=== PATIENT | male | born 1940 | race African-American/Black ===

== ENCOUNTER 2020-05-20 11:19 | Emergency (ER) | payer BC, OTHER ==
[~2020-05-20] VITALS: Ht 167.6 cm; Wt 69.5 kg
[2020-05-20] MEDS ORDERED: ACETAMINOPHEN 650MG/20.3ML UDC PO ONE (11:45)
[2020-05-20 12:58] LABS: CHLORIDE 107 mEq/L (98-107)
[2020-05-20 13:01] LABS: BASOPHILS % 0.6 % (0.0-2.0); EOSINOPHILS % 12.5 % (0.0-5.0); HEMATOCRIT. 35.5 % (42.0-52.0); LYMPHOCYTES % 34.5 % (20.0-50.0); MEAN CORPUSCULAR HEMOGLOBIN 34.1 pg (28.0-32.0); MEAN CORPUSCULAR VOLUME 101.2 fL (80.0-94.0); MEAN PLATELET VOLUME 8.4 fl (7.4-10.4); MONOCYTES % 14.5 % (2.0-8.0); NEUTROPHILS % 37.9 % (40.0-76.0); PLATELET 135 x1000/uL (130-400); RED BLOOD CELL COUNT 3.51 mill/uL (4.7-6.1); RED CELL DISTRIBUTION WIDTH 14.1 % (11.6-14.6)
[2020-05-20 13:20] LABS: CLARITY URINE CLEAR (CLEAR); COLOR URINE YELLOW (YELLOW); KETONES URINE NEGATIVE (NEGATIVE); LEUKOCYTE ESTERASE URINE TRACE (NEGATIVE); NITRITE URINE NEGATIVE (NEGATIVE); OCCULT BLOOD URINE NEGATIVE (NEGATIVE); PH URINE 6.5 (4.5-8.0); PROTEIN URINE NEGATIVE (NEGATIVE); SPECIFIC GRAVITY URINE 1.011 (1.005-1.030); UROBILINOGEN URINE 0.2 E.U./dL (0.2-1.0)
[2020-05-20 13:38] LABS: *AMPHETAMINES SCREEN URINE NEGATIVE (NEGATIVE)
[2020-05-20 13:39] LABS: *BARBITURATES SCREEN URINE NEGATIVE (NEGATIVE); *BENZODIAZEPINES SCREEN URINE NEGATIVE (NEGATIVE); METHADONE URINE SCREEN NEGATIVE (NEGATIVE); PHENCYCLIDINE URINE SCREEN NEGATIVE (NEGATIVE)
[2020-05-20 13:40] LABS: *COCAINE SCREEN URINE NEGATIVE (NEGATIVE); CANNABINOID URINE SCREEN NEGATIVE (NEGATIVE); OPIATES URINE SCREEN NEGATIVE (NEGATIVE)
[2020-05-20 17:39] VITALS: BP 148/65
== END 2020-05-20 18:10 | disposition home or self-care (01) ==
LOC: ER 12:11
DX: M54.16 Radiculopathy, lumbar region (principal); M79.605 Pain in left leg; M79.604 Pain in right leg; R51.9 Headache, unspecified; I11.0 Hypertensive heart disease with heart failure; D72.819 Decreased white blood cell count, unspecified; D50.9 Iron deficiency anemia, unspecified; E87.70 Fluid overload, unspecified; E88.09 Other disorders of plasma-protein metabolism, not elsewhere classified; E46 Unspecified protein-calorie malnutrition; M47.896 Other spondylosis, lumbar region; Z95.0 Presence of cardiac pacemaker; V49.88XA Car occupant (driver) (passenger) injured in other specified transport accidents, initial encounter; Y93.89 Activity, other specified; Y92.89 Other specified places as the place of occurrence of the external cause; Y99.8 Other external cause status
CPT/HCPCS: 36415; 71045; 72070; 72100; 80053; 80305; 81003; 83880; 84484; 85025; 93005; 99285

== ENCOUNTER 2020-08-15 23:47 | Inpatient (IN) | payer OTHER ==
[~2020-08-15] VITALS: Ht 167.6 cm; Wt 68.9 kg
[2020-08-16] MEDS ORDERED: SODIUM CHLORIDE 0.9% 1,000 ML IV ONE
[2020-08-16 00:37] LABS: HEMATOCRIT. 34.5 % (42.0-52.0); HEMOGLOBIN. 11.7 g/dL (14.0-18.0); MEAN CORPUSCULAR HEMOGLOBIN 33.9 pg (28.0-32.0); MEAN CORPUSCULAR VOLUME 99.8 fL (80.0-94.0); MEAN PLATELET VOLUME 7.7 fl (7.4-10.4); PLATELET 139 x1000/uL (130-400); RED BLOOD CELL COUNT 3.45 mill/uL (4.7-6.1); RED CELL DISTRIBUTION WIDTH 14.2 % (11.6-14.6)
[2020-08-16 00:40] LABS: CHLORIDE 106 mEq/L (98-107)
[2020-08-16 01:11] LABS: CLARITY URINE CLOUDY (CLEAR); COLOR URINE DARK YELLOW (YELLOW); KETONES URINE TRACE (NEGATIVE); LEUKOCYTE ESTERASE URINE NEGATIVE (NEGATIVE); NITRITE URINE NEGATIVE (NEGATIVE); OCCULT BLOOD URINE 2+ (NEGATIVE); PH URINE 5.5 (4.5-8.0); PROTEIN URINE 1+ (NEGATIVE); SPECIFIC GRAVITY URINE 1.023 (1.005-1.030); UROBILINOGEN URINE 0.2 E.U./dL (0.2-1.0)
[2020-08-16 01:33] LABS: INR 1.2; PROTHROMBIN TIME 13.2 sec (9.6-11.0)
[2020-08-16 01:52] LABS: PLATELET ESTIMATE NORMAL
[2020-08-16 09:00] VITALS: BP 140/63
[2020-08-16] MEDS ORDERED: TRAM50TA MT (10:34)
[2020-08-16] MEDS ORDERED: TERA5CAP4 PO (10:34)
[2020-08-16] MEDS ORDERED: LOSA50TA41 MT (10:34)
[2020-08-16] MEDS ORDERED: NEBI5TAB3 MT (10:34)
[2020-08-16] MEDS ORDERED: FAMO20TA8 PO (10:34)
[2020-08-16] MEDS ORDERED: ENOXAPARIN 40MG/0.4ML SYR SUBCUT SCH (12:00)
[2020-08-16] MEDS ORDERED: LEVOFLOXACIN 500MG PREMIX 100 ML IV SCH (12:00)
[2020-08-16] MEDS: FAMOTIDINE 20MG/2ML VIAL IV SCH (13:13)
[2020-08-16] MEDS: DEXT 5%/0.45% NACL 1000ML 1,000 ML IV SCH (13:13)
[2020-08-16 13:18] LABS: BG BASE EXCESS 0.2 mmol/L (-2.0-2.0); BG CARBOXYHEMOGLOBIN 0.3 % (0.5-1.5); BG DEOXYHEMOGLOBIN 3.9 % (0.0-5.0); BG FRACTION INSPIRED OXYGEN 21; BG HCO3 ACT 22.9 mmol/L (22.0-26.0); BG METHEMOGLOBIN 0.3 % (0.0-1.5); BG OXYGEN SATURATION 96.1 % (92.0-98.5); BG OXYHEMOGLOBIN 95.5 % (94.0-97.0); BG PH 7.487 (7.350-7.450); BG SAMPLE SITE LEFT RADIAL; BG TOTAL HEMOGLOBIN 11.5 g/dL (12.0-18.0); BG VENT MODE ROOM AIR
[2020-08-16] MEDS ORDERED: DIPHENHYDRAMINE 50MG/ML VIAL IV PRN (15:30)
[2020-08-16] MEDS ORDERED: ACETAMINOPHEN 650MG SUPP PR PRN (15:30)
[2020-08-16] MEDS ORDERED: ONDANSETRON HCL 4MG/2ML INJ IV PRN (15:30)
[2020-08-16] MEDS ORDERED: IPRATROPIUM/ALBUTEROL 0.5-3(2.5)MG/3ML NEB HHN PRN (15:30)
[2020-08-16] MEDS ORDERED: BISACODYL 10MG SUPP PR PRN (15:30)
[2020-08-16] MEDS ORDERED: LORAZEPAM 2MG/ML CPJ IV PRN (15:30)
[2020-08-16] MEDS: HYDROCODONE/ACETAMINOPHEN 5/325MG TABLET PO PRN ×2 (15:55→21:07)
[2020-08-16 16:00] VITALS: BP 129/62
[2020-08-16] MEDS ORDERED: POTASSIUM CHLORIDE 20MEQ TABLET SR PO NR (16:15)
[2020-08-16 18:24] LABS: HEMATOCRIT. 29.8 % (42.0-52.0); HEMOGLOBIN. 10.5 g/dL (14.0-18.0); MEAN CORPUSCULAR HEMOGLOBIN 34.9 pg (28.0-32.0); MEAN CORPUSCULAR VOLUME 98.7 fL (80.0-94.0); MEAN PLATELET VOLUME 8.1 fl (7.4-10.4); PLATELET 104 x1000/uL (130-400); RED BLOOD CELL COUNT 3.02 mill/uL (4.7-6.1); RED CELL DISTRIBUTION WIDTH 14.1 % (11.6-14.6)
[2020-08-16 18:32] LABS: CHLORIDE 108 mEq/L (98-107)
[2020-08-16 18:40] LABS: LDL CHOLESTEROL 53 mg/dL (5-100)
[2020-08-16 18:42] LABS: CREATINE KINASE 752 IU/L (39-308)
[2020-08-16 18:43] LABS: HDL CHOLESTEROL 41 mg/dL (40-59); T4 FREE 1.18 ng/dL (0.76-1.46)
[2020-08-16 18:47] LABS: CREATINE KINASE MB FRACTION 5.1 ng/mL (0.5-3.6)
[2020-08-16 19:10] LABS: PLATELET ESTIMATE DECREASED
[2020-08-16 20:00] VITALS: BP 120/62
[2020-08-16] MEDS ORDERED: LACTULOSE 20G/30ML UDC PO PRN (21:00)
[2020-08-16 21:48] LABS: VITAMIN B12 SERUM 569 pg/mL (211-911)
[2020-08-17] VITALS: BP 129/77
[2020-08-17] MEDS: DEXT 5%/0.45% NACL 1000ML 1,000 ML IV SCH ×2 (00:27→14:40)
[2020-08-17 04:00] VITALS: BP 125/71
[2020-08-17 06:55] LABS: CHLORIDE 112 mEq/L (98-107)
[2020-08-17 08:00] VITALS: BP 121/70
[2020-08-17] MEDS: FAMOTIDINE 20MG/2ML VIAL IV SCH (08:54)
[2020-08-17] MEDS: HYDROCODONE/ACETAMINOPHEN 5/325MG TABLET PO PRN ×2 (09:43→20:34)
[2020-08-17 10:49] LABS: HEMATOCRIT. 31.7 % (42.0-52.0); HEMOGLOBIN. 11.2 g/dL (14.0-18.0); MEAN CORPUSCULAR HEMOGLOBIN 34.8 pg (28.0-32.0); MEAN CORPUSCULAR VOLUME 98.7 fL (80.0-94.0); MEAN PLATELET VOLUME 8.9 fl (7.4-10.4); PLATELET 112 x1000/uL (130-400); RED BLOOD CELL COUNT 3.21 mill/uL (4.7-6.1); RED CELL DISTRIBUTION WIDTH 14.4 % (11.6-14.6)
[2020-08-17] MEDS: LEVOFLOXACIN 250MG PREMIX 50 ML IV SCH (11:30)
[2020-08-17 12:00] VITALS: BP 150/53
[2020-08-17 16:00] VITALS: BP 140/86
[2020-08-17 16:19] LABS: PLATELET ESTIMATE DECREASED
[2020-08-17 20:00] VITALS: BP 151/65
[2020-08-18] VITALS (7 sets, daily range): BP systolic 110–182; BP diastolic 53–84
[2020-08-18] MEDS: DEXT 5%/0.45% NACL 1000ML 1,000 ML IV SCH ×2 (03:36→18:20)
[2020-08-18 07:25] LABS: BASOPHILS % 0.2 % (0.0-2.0); EOSINOPHILS % 9.8 % (0.0-5.0); HEMATOCRIT. 30.7 % (42.0-52.0); HEMOGLOBIN. 10.9 g/dL (14.0-18.0); LYMPHOCYTES % 7.7 % (20.0-50.0); MEAN CORPUSCULAR HEMOGLOBIN 35.1 pg (28.0-32.0); MEAN CORPUSCULAR VOLUME 99.3 fL (80.0-94.0); MEAN PLATELET VOLUME 8.6 fl (7.4-10.4); MONOCYTES % 8.1 % (2.0-8.0); NEUTROPHILS % 74.2 % (40.0-76.0); PLATELET 97 x1000/uL (130-400); RED CELL DISTRIBUTION WIDTH 14.4 % (11.6-14.6)
[2020-08-18 07:28] LABS: CHLORIDE 112 mEq/L (98-107)
[2020-08-18] MEDS: POTASSIUM CHLORIDE 20MEQ TABLET SR PO SCH ×2 (09:36→11:13)
[2020-08-18] MEDS: AMLODIPINE 5MG TABLET PO SCH ×2 (09:36→11:13)
[2020-08-18] MEDS: FAMOTIDINE 20MG TABLET PO SCH ×2 (09:37→11:13)
[2020-08-18] MEDS: HYDRALAZINE 20MG/ML VIAL IV PRN (09:37)
[2020-08-18] MEDS: LEVOFLOXACIN 250MG PREMIX 50 ML IV SCH (11:13)
[2020-08-18] MEDS ORDERED: LEVO250T58 MT (12:09)
[2020-08-18] MEDS ORDERED: AMLO5TAB4 MT (12:09)
[2020-08-18] MEDS ORDERED: LOSARTAN POTASSIUM 25 MG TABLET PO NR (12:30)
[2020-08-18] MEDS: ACETAMINOPHEN 325MG TABLET PO PRN (13:08)
[2020-08-18] MEDS: HYDROCODONE/ACETAMINOPHEN 5/325MG TABLET PO PRN (13:09)
[2020-08-18 21:59] LABS: CLARITY URINE CLEAR (CLEAR); COLOR URINE YELLOW (YELLOW); KETONES URINE NEGATIVE (NEGATIVE); LEUKOCYTE ESTERASE URINE NEGATIVE (NEGATIVE); NITRITE URINE NEGATIVE (NEGATIVE); OCCULT BLOOD URINE TRACE (NEGATIVE); PROTEIN URINE NEGATIVE (NEGATIVE); SPECIFIC GRAVITY URINE 1.013 (1.005-1.030); UROBILINOGEN URINE 0.2 E.U./dL (0.2-1.0)
[2020-08-19] VITALS (8 sets, daily range): BP systolic 96–168; BP diastolic 58–91
[2020-08-19] MEDS: ACETAMINOPHEN 325MG TABLET PO PRN (03:00)
[2020-08-19 06:33] LABS: BASOPHILS % 0.4 % (0.0-2.0); EOSINOPHILS % 9.3 % (0.0-5.0); HEMATOCRIT. 28.8 % (42.0-52.0); LYMPHOCYTES % 16.4 % (20.0-50.0); MEAN CORPUSCULAR HEMOGLOBIN 34.3 pg (28.0-32.0); MEAN CORPUSCULAR VOLUME 98.5 fL (80.0-94.0); MEAN PLATELET VOLUME 8.1 fl (7.4-10.4); NEUTROPHILS % 62.9 % (40.0-76.0); PLATELET 118 x1000/uL (130-400); RED BLOOD CELL COUNT 2.92 mill/uL (4.7-6.1)
[2020-08-19 06:37] LABS: CHLORIDE 111 mEq/L (98-107)
[2020-08-19] MEDS: FAMOTIDINE 20MG TABLET PO SCH (09:52)
[2020-08-19] MEDS: AMLODIPINE 5MG TABLET PO SCH (09:53)
[2020-08-19] MEDS: LEVOFLOXACIN 250MG TABLET PO SCH (12:58)
[2020-08-19] MEDS: HYDROCODONE/ACETAMINOPHEN 5/325MG TABLET PO PRN (16:09)
[2020-08-19] MEDS: DEXT 5%/0.45% NACL 1000ML 1,000 ML IV SCH ×2 (16:09→20:51)
[2020-08-20] VITALS: BP 154/75
[2020-08-20 04:00] VITALS: BP 171/82
[2020-08-20] MEDS: HYDRALAZINE 20MG/ML VIAL IV PRN (04:37)
[2020-08-20 06:37] LABS: BASOPHILS % 0.3 % (0.0-2.0); EOSINOPHILS % 5.7 % (0.0-5.0); HEMATOCRIT. 29.7 % (42.0-52.0); HEMOGLOBIN. 10.5 g/dL (14.0-18.0); LYMPHOCYTES % 18.7 % (20.0-50.0); MEAN CORPUSCULAR HEMOGLOBIN 34.8 pg (28.0-32.0); MEAN CORPUSCULAR VOLUME 98.2 fL (80.0-94.0); MEAN PLATELET VOLUME 8.2 fl (7.4-10.4); MONOCYTES % 11.6 % (2.0-8.0); NEUTROPHILS % 63.7 % (40.0-76.0); PLATELET 125 x1000/uL (130-400); RED BLOOD CELL COUNT 3.02 mill/uL (4.7-6.1); RED CELL DISTRIBUTION WIDTH 14.5 % (11.6-14.6)
[2020-08-20] MEDS: HYDROCODONE/ACETAMINOPHEN 5/325MG TABLET PO PRN (06:47)
[2020-08-20 06:59] LABS: CHLORIDE 111 mEq/L (98-107)
[2020-08-20 08:22] VITALS: BP 171/70
[2020-08-20] MEDS: AMLODIPINE 5MG TABLET PO SCH (09:29)
[2020-08-20] MEDS: DEXT 5%/0.45% NACL 1000ML 1,000 ML IV SCH (09:29)
[2020-08-20] MEDS: FAMOTIDINE 20MG TABLET PO SCH (09:29)
[2020-08-20] MEDS ORDERED: LOSARTAN POTASSIUM 50 MG TABLET PO SCH (11:45)
[2020-08-20 12:44] VITALS: BP 157/67
[2020-08-20] MEDS: LEVOFLOXACIN 250MG TABLET PO SCH (13:18)
[2020-08-20 15:54] VITALS: BP 141/70
[2020-08-20 17:53] VITALS: BP 141/70
[2020-08-21] MEDS ORDERED: AMLODIPINE 10MG TABLET PO SCH (09:00)
== END 2020-08-20 18:30 | disposition home or self-care (01) | DRG 70 ==
LOC: ER 23:47 → 8WST 08-16 04:56 → ENRESERV 08-16 07:49 → 8WST 08-17 20:20
PROVIDERS: ADMIT Internal Medicine; ATTEND Internal Medicine
PROC: 4A10X4Z Monitoring of Central Nervous Electrical Activity, External Approach (ICD-10-PCS; principal; 2020-08-17)
PROC: 4B02XTZ Measurement of Cardiac Defibrillator, External Approach (ICD-10-PCS; 2020-08-17)
DX: G93.41 Metabolic encephalopathy (principal); I50.33 Acute on chronic diastolic (congestive) heart failure; I42.9 Cardiomyopathy, unspecified; J98.11 Atelectasis; N39.0 Urinary tract infection, site not specified; D64.9 Anemia, unspecified; D69.6 Thrombocytopenia, unspecified; E87.6 Hypokalemia; F03.90 Unspecified dementia, unspecified severity, without behavioral disturbance, psychotic disturbance, mood disturbance, and anxiety; I11.0 Hypertensive heart disease with heart failure; N40.0 Benign prostatic hyperplasia without lower urinary tract symptoms; Z20.822 Contact with and (suspected) exposure to COVID-19; R73.9 Hyperglycemia, unspecified; I70.0 Atherosclerosis of aorta; G90.8 Other disorders of autonomic nervous system; Z82.49 Family history of ischemic heart disease and other diseases of the circulatory system; Z95.810 Presence of automatic (implantable) cardiac defibrillator; Z87.891 Personal history of nicotine dependence; Z79.899 Other long term (current) drug therapy
CPT/HCPCS: 36415; 36600; 71045; 72170; 73080; 73100; 73560; 80048; 80053; 80061; 81003; 82140; 82330; 82375; 82550; 82553; 82607; 82805; 83036; 83605; 83735; 84145; 84153; 84439; 84443; 84484; 85025; 87426; 92523; 93005; 93306; 93970; 95816; 97116; 97162; 99285; J0360; J1200; J1956; J2060; J3490; J7030; G0103

== ENCOUNTER 2020-09-23 00:14 | Emergency (ER) | payer OTHER ==
[~2020-09-23] VITALS: Ht 165.1 cm; Wt 68.0 kg
[~2020-09-23 00:14] MED LIST: AMLO5TAB4 MT; FAMO20TA8 PO; LEVO250T58 MT; LOSA50TA41 MT; TERA5CAP4 PO
[2020-09-23 00:33] VITALS: BP 168/81
[2020-09-23 01:28] LABS: CLARITY URINE CLEAR (CLEAR); COLOR URINE YELLOW (YELLOW); KETONES URINE NEGATIVE (NEGATIVE); LEUKOCYTE ESTERASE URINE 2+ (NEGATIVE); NITRITE URINE NEGATIVE (NEGATIVE); OCCULT BLOOD URINE 1+ (NEGATIVE); PROTEIN URINE NEGATIVE (NEGATIVE); SPECIFIC GRAVITY URINE 1.011 (1.005-1.030); UROBILINOGEN URINE 0.2 E.U./dL (0.2-1.0)
[2020-09-23] MEDS ORDERED: SULF1TAB48 MT (01:56)
== END 2020-09-23 05:08 | disposition home or self-care (01) ==
LOC: ER 00:14
DX: N39.0 Urinary tract infection, site not specified (principal); R33.9 Retention of urine, unspecified; F03.90 Unspecified dementia, unspecified severity, without behavioral disturbance, psychotic disturbance, mood disturbance, and anxiety; I11.9 Hypertensive heart disease without heart failure; Z95.0 Presence of cardiac pacemaker; Z98.890 Other specified postprocedural states
CPT/HCPCS: 81003; 99283; A4315

== ENCOUNTER 2023-06-27 13:23 | Emergency (ER) | payer BC ==
[~2023-06-27] VITALS: Ht 167.6 cm; Wt 64.0 kg
[~2023-06-27 13:23] MED LIST changes: -AMLO5TAB4 MT; +ARIP2TAB16 PO; +ATOR10TA69 PO; +CLON0.2T PO; -FAMO20TA8 PO; -LEVO250T58 MT; +LOSA100T33 PO; -LOSA50TA41 MT; +MEMA10TA55 PO; +METO-411 PO; -TERA5CAP4 PO
[2023-06-27 13:35] VITALS: O2SAT 100
[2023-06-27 17:00] VITALS: BP 130/79; PULSE 70; RESP 17; TEMP 98
== END 2023-06-27 17:20 | disposition home or self-care (01) ==
LOC: ER 13:45
DX: I95.9 Hypotension, unspecified (principal); I10 Essential (primary) hypertension; F03.90 Unspecified dementia, unspecified severity, without behavioral disturbance, psychotic disturbance, mood disturbance, and anxiety
CPT/HCPCS: 99281